=== PATIENT | male | born 1950 | race Caucasian/White ===

== ENCOUNTER 2017-01-26 16:18 | Inpatient (IN) | payer OTHER ==
[~2017-01-26] VITALS: Ht 180.3 cm; Wt 73.3 kg
[2017-02-27] VITALS (10 sets, daily range): BP systolic 106–133; BP diastolic 59–93; PULSE 58–96; TEMP 98.3
[2017-02-27] MEDS ORDERED: RT SPIRIVA18 MCG IH (10:01)
[2017-02-27] MEDS ORDERED: HYZAAR 50-12.1 UDTAB PO (10:01)
[2017-02-28 01:38] VITALS: BP 118/70; PULSE 80; TEMP 97.5
[2017-02-28 06:35] VITALS: BP 126/83; PULSE 79; TEMP 98.5
[2017-02-28 07:29] LABS: BASO % 0.1 % (0.0-2.0); GRAN # 11.2 (1.4-6.5); GRAN % 80.2 % (42.2-75.2); HEMOGLOBIN 12.2 g/dl (13.5-18.0); LYMPH # 1.8 (1.2-3.4); LYMPH % 12.6 % (20.0-51.0); MEAN CELL VOLUME 101 fl (80.0-100.0); MEAN CORPUSCULAR HEMOGLOBIN 34 pg (27.0-31.0); MEAN CORPUSCULAR HGB CONC 34 g/dl (33.0-37.0); MEAN PLATELET VOLUME 9.5 fl (7.4-10.4); MONO # 0.9 (0.1-0.6); MONO % 6.6 % (1.7-9.3); PLATELET COUNT 327 K/mm3 (130-400); RED BLOOD COUNT 3.57 M/mm3 (4.20-5.60); REDCELL DISTRIBUTION WIDTH-CV 12.6 % (11.5-14.5)
[2017-02-28 07:33] LABS: HEMATOCRIT 35.9 % (42.0-52.0)
[2017-02-28 08:16] LABS: CALCIUM 8.1 mg/dL (8.4-10.2); CREATININE, serum 0.72 mg/dL (0.66-1.25); POTASSIUM 3.7 mmol/L (3.4-5.0)
[2017-02-28 09:35] VITALS: BP 108/60; PULSE 90; TEMP 98.1
[2017-02-28 13:32] VITALS: BP 106/66; PULSE 79; TEMP 98.3
[2017-02-28] MEDS ORDERED: PERCOCET 325 MG1 TA2 PO (15:33)
[2017-02-28] MEDS ORDERED: SENOKOT S 50 MG1 TAB PO (15:35)
== END 2017-02-28 16:20 | disposition home or self-care (01) | DRG 708 ==
LOC: SURG 02-27 09:03 → INPTSU 02-27 09:03 → SURG 02-27 11:45 → INPTSU 02-27 18:24 → SURG 02-28 05:47
PROVIDERS: Urology
PROC: 07BC4ZX Excision of Pelvis Lymphatic, Percutaneous Endoscopic Approach, Diagnostic (ICD-10-PCS; 2017-02-27)
PROC: 8E0W4CZ Robotic Assisted Procedure of Trunk Region, Percutaneous Endoscopic Approach (ICD-10-PCS; 2017-02-27)
PROC: 0VT04ZZ Resection of Prostate, Percutaneous Endoscopic Approach (ICD-10-PCS; principal; 2017-02-27 11:45)
DX: C61 Malignant neoplasm of prostate (principal); J44.9 Chronic obstructive pulmonary disease, unspecified; I10 Essential (primary) hypertension; Z85.51 Personal history of malignant neoplasm of bladder
CPT/HCPCS: OP; A9284; C1713; J0330; J0690; J1100; J1170; J1644; J1885; J2370; J2405; J2704; J2710; J2765; J3010; J7120

== ENCOUNTER → 2017-02-26 | Outpatient (CLI) | payer OTHER ==
[~2017-02-26] MED LIST: HYZAAR 50-12.1 UDTAB PO; PERCOCET 325 MG1 TA2 PO; RT SPIRIVA18 MCG IH; SENOKOT S 50 MG1 TAB PO
== END ==
LOC: COL.LAB 10:24
DX: Z01.818 Encounter for other preprocedural examination (principal); C61 Malignant neoplasm of prostate

== ENCOUNTER → 2024-04-15 | Outpatient (CLI) | payer MEDICARE, OTHER ==
[~2024-04-15] MED LIST changes: +Albuterol 0.083% Neb Soln 2.5 MG/3 ML UD IH ONE
== END ==
LOC: COL.VAS 10:38
DX: I35.1 Nonrheumatic aortic (valve) insufficiency (principal); I51.7 Cardiomegaly; J90 Pleural effusion, not elsewhere classified; J44.9 Chronic obstructive pulmonary disease, unspecified